=== PATIENT | male | born 1950 | race Caucasian/White ===

== ENCOUNTER 2020-06-02 06:56 | Emergency (ER) | payer OTHER, BC ==
[~2020-06-02] VITALS: Ht 177.8 cm; Wt 88.9 kg
[2020-06-02 07:08] VITALS: Ht 177.8 cm; Wt 88.9 kg
[2020-06-02 08:15] LABS: BASOPHIL % 0.4 % (0-2); PLATELET COUNT 167 x10^3mcL (130-400); RED CELL DISTRIBUTION WIDTH 12.4 % (11.5-14.5)
[2020-06-02 08:49] LABS: CALCIUM 8.8 mg/dL (8.5-10.1); CARBON DIOXIDE 26.5 mmol/L (21-32); CHLORIDE SERUM 104 mmol/L (98-107); CREATININE SERUM 0.9 mg/dL (0.7-1.3); GFR1 > 60 mL/min; GLUCOSE SERUM 100 mg/dL (74-106); POTASSIUM SERUM 3.7 mmol/L (3.5-5.1); SODIUM SERUM 143 mmol/L (136-145)
[2020-06-02 08:53] VITALS: BP 141/71
[2020-06-02 08:53] LABS: ALBUMIN 4.3 g/dL (3.4-5.0); ALKALINE PHOSPHATASE 82 U/L (46-116); ALT/SGPT 24 U/L (16-63); AST/SGOT 20 U/L (15-37); BILIRUBIN TOTAL 1.32 mg/dL (0.20-1.00); CHOLESTEROL 161 mg/dL (<200); HDL CHOLESTEROL 35 mg/dL (40-60); LIPASE 82 IU/L (73-393); PHOSPHOROUS 3.5 mg/dL (2.5-4.9); TOTAL PROTEIN, SERUM 7.5 g/dL (6.4-8.2); URIC ACID 5.3 mg/dL (3.5-7.2)
== END 2020-06-02 09:00 | disposition home or self-care (01) ==
LOC: ED 06:56
PROVIDERS: Emergency Medicine
DX: K20.90 Esophagitis, unspecified without bleeding (principal); I10 Essential (primary) hypertension; Z98.890 Other specified postprocedural states
CPT/HCPCS: J2405; Q0092